=== PATIENT | female | born 1985 | race African-American/Black ===

== ENCOUNTER 2019-10-12 12:21 | Emergency (ER) | payer OTHER, SELFPAY ==
[2019-10-12] MEDS ORDERED: Ketorolac Tromethamine 30 MG/ML VIAL ONE (12:56)
[2019-10-12] MEDS ORDERED: Dexamethasone 10 MG/ML VIAL ONE (12:56)
[2019-10-12] MEDS ORDERED: Metoclopramide HCl 10 MG/2 ML VIAL ONE (12:56)
--- NOTE | 2019-10-12 13:00 | CT ---
Exam: Head CT without contrast HISTORY: Pain. Trauma. COMPARISON: 01/07/2016 FINDINGS: Hemorrhage: No intraparenchymal hemorrhage or extra-axial hematoma. Brain parenchyma: Cortical ansari-white matter differentiation is preserved. No mass effect or midline shift. Basilar cisterns are patent. Ventricular system: Ventricles and sulci are patent and symmetric. Calvarium: Intact. Sinuses and mastoid air cells: Adequate paranasal sinus aeration and the left mastoid air cell aerati on. Minimal opacification of the right mastoid air cells. No evidence of and posterior matter change in the overlying soft tissues. Opacification is presumed to be due to infectious or inflammato ry process. There does appear to be fullness of the nasopharynx. IMPRESSION: 1. No acute intracranial posttraumatic sequelae. 2. Asymmetric partial opacification of the inferior right mastoid air cells. There does appear to be soft tissue fullness of the nasopharynx. Direct visualization to exclude a mucosal-based pathology is recommended. Opacification may be postobstructive versus infectious or inflammatory process
== END 2019-10-12 14:16 | disposition home or self-care (01) ==
LOC: ERS 12:21
DX: J32.9 Chronic sinusitis, unspecified (principal); R51 Headache; F17.290 Nicotine dependence, other tobacco product, uncomplicated
CPT/HCPCS: 70450; 96361; 96374; 96375; J1100; J1885; J2765

== ENCOUNTER 2021-04-21 02:20 | Inpatient (IN) | payer OTHER ==
[2021-04-21 02:49] LABS: #Basophils 0.1 thou/uL (0.0-0.2); #Eosinphils 0.2 thou/uL (0.0-0.7); #Lymphocytes 4.5 thou/uL (1.20-3.40); #Neutrophils 5.8 thou/uL (1.40-6.50); %Basophils 0.8 % (0.0-1.0); %Eosinophils 1.7 % (0.0-10.0); %Monocytes 8.8 % (0.0-10.0); %Neutrophils 49.7 % (42.0-75.0); Hemoglobin 11.2 g/dL (12.0-16.0); Mean Corpuscular HGB CONC 33.5 g/dL (32.0-36.0); Mean Corpuscular Hemoglobin 29.4 pg (27.0-31.0); Mean Corpuscular Volume 87.6 fL (78.0-98.0); Mean Platelet Volume 7.3 fL (7.4-10.4); Platelet Count 382 thou/uL (130-400); Red Blood Cell (RBC) Count 3.81 mill/uL (4.20-5.40); White Blood Cell (WBC) Count 11.6 thou/uL (4.8-10.8)
[2021-04-21] MEDS ORDERED: Fentanyl 100 MCG/2 ML VIAL ONE ×5 (02:55→08:20)
[2021-04-21] MEDS ORDERED: Boostrix 0.5 ML (Tdap) VIAL ONE (02:58)
[2021-04-21] MEDS ORDERED: Ondansetron PF 4 MG/2 ML Vial ONE ×2 (02:58→05:13)
[2021-04-21] MEDS ORDERED: Piperacillin/Tazobactam 3.375 GM VIAL ONE ×3 (02:59→22:51)
[2021-04-21 03:10] LABS: ALT (SGPT) 32 U/L (8-55); AST (SGOT) 24 U/L (5-34); Albumin 3.9 g/dL (3.5-5.0); Alkaline Phosphatase 115 U/L (40-110); Anion Gap 14 mmol/L (10-20); BUN (Urea Nitrogen) 8 mg/dL (7.0-18.7); Bilirubin, Total 0.2 mg/dL (0.2-1.2); Calc. Creatinine Clearance 0 mL/min (70-130); Carbon Dioxide 23 mmol/L (22-29); Chloride 105 mmol/L (98-107); Globulin 3.2 g/dL (2.4-3.5); Glucose 127 mg/dL (70-105); Protein, Total 7.1 g/dL (6.0-8.3); Sodium 139 mmol/L (136-145)
[2021-04-21] MEDS ORDERED: HYDROmorphone 0.5 MG/0.5 ML SYRINGE ONE (03:19)
[2021-04-21] MEDS ORDERED: Dextrose 50% Abboject 50 ML SYRINGE SLOW IVP PRN (03:34)
[2021-04-21] MEDS ORDERED: Piperacillin/Tazobactam 3.375 GM in Sodium Chloride 0.9% 100 ML IVPB SCH (03:34)
[2021-04-21] MEDS ORDERED: Dextrose 5% in Water 1,000 ML IV PRN (03:34)
[2021-04-21] MEDS ORDERED: traMADol HCl 50 MG TAB PO PRN ×2 (03:34)
[2021-04-21] MEDS ORDERED: Ondansetron PF 4 MG/2 ML Vial IVP PRN (03:34)
[2021-04-21] MEDS ORDERED: hydrALAZINE 20 MG/ML VIAL SLOW IVP PRN (03:34)
[2021-04-21] MEDS ORDERED: Promethazine HCl 25 MG/ML VIAL IM PRN ×3 (03:34→06:12)
[2021-04-21] MEDS ORDERED: Ondansetron ODT 4 MG TAB PO PRN (03:34)
[2021-04-21 03:44] LABS: Potassium 2.8 mmol/L (3.5-5.1)
[2021-04-21] MEDS ORDERED: Ibuprofen 800 MG TAB PO SCH (04:00)
[2021-04-21 04:16] LABS: SARS-CoV-2 NAA Rapid Test Not Detected (NotDetected)
[2021-04-21 04:40] LABS: BHCG - Serum Negative (NEGATIVE); Pregs Control Background? CLEAR/WHITE (CLR/WHITE); Pregs Control Bar Appear? YES (CONTROL BAR)
[2021-04-21] MEDS ORDERED: Neomycin-Polymyxin 1 ML AMP ONE (04:42)
[2021-04-21] MEDS ORDERED: Ketorolac Tromethamine 30 MG/ML VIAL ONE (05:13)
[2021-04-21] MEDS ORDERED: PHENYLEPHRINE-NS 100 MCG/ML 10 ML SYRINGE ONE (05:13)
[2021-04-21] MEDS ORDERED: Rocuronium Bromide 10 MG/ML (10ML VIAL) ONE (05:13)
[2021-04-21] MEDS ORDERED: Dexamethasone 20 MG/5 ML VIAL ONE (05:13)
[2021-04-21] MEDS ORDERED: PROPOFOL 200 MG/20 ML VIAL ONE (05:13)
[2021-04-21] MEDS ORDERED: Succinylcholine 200 MG/10 ml SYRINGE FS ONE (05:13)
[2021-04-21] MEDS ORDERED: Lidocaine 1% PF 5 ML VIAL ONE (05:13)
[2021-04-21] MEDS ORDERED: Promethazine HCl 25 MG/ML VIAL IVPB PRN (06:12)
[2021-04-21] MEDS ORDERED: Ondansetron HCl/PF 4 MG/2 ML Vial IVP PRN (06:12)
[2021-04-21] MEDS ORDERED: Sodium Chloride 0.9% 100 ML ONE (07:12)
[2021-04-21] MEDS: Piperacillin/Tazobactam 3.375 GM in Sodium Chloride 0.9% 100 ML IVPB SCH ×3 (07:15→22:52)
[2021-04-21] MEDS ORDERED: Promethazine HCl 25 MG/ML VIAL ONE (07:26)
[2021-04-21 10:04] LABS: Magnesium 1.9 mg/dL (1.6-2.6); Phosphorus 2.7 mg/dL (2.3-4.7)
[2021-04-21] MEDS ORDERED: Acetaminophen 500 MG TAB ONE (11:35)
[2021-04-21] MEDS: Acetaminophen 500 MG TAB PO SCH ×4 (12:13→22:48)
[2021-04-21] MEDS: Potassium Chloride 20 MEQ in Premix Bag 1 BAG IVPB SCH ×3 (12:24→14:20)
[2021-04-21] MEDS ORDERED: Famotidine 20 MG TAB ONE (12:29)
[2021-04-21] MEDS ORDERED: Gabapentin 300 MG CAP ONE (12:29)
[2021-04-21] MEDS: Famotidine 20 MG TAB PO SCH ×2 (12:32→19:50)
[2021-04-21] MEDS: Ibuprofen 200 MG TAB PO SCH ×2 (12:33→19:51)
[2021-04-21] MEDS: CEFAZOLIN 2 GM in Premix Bag 1 BAG IVPB SCH ×2 (12:45→19:49)
[2021-04-21] MEDS: Sodium Chloride 0.9% 1,000 ML IV SCH ×2 (13:10→14:19)
[2021-04-21] MEDS: Gabapentin 300 MG CAP PO SCH ×3 (13:14→19:51)
[2021-04-21 13:49] LABS: Anion Gap 13 mmol/L (10-20); BUN (Urea Nitrogen) 7 mg/dL (7.0-18.7); Calc. Creatinine Clearance 0 mL/min (70-130); Calcium 9.1 mg/dL (7.8-10.44); Carbon Dioxide 26 mmol/L (22-29); Chloride 104 mmol/L (98-107); Glucose 164 mg/dL (70-105); Magnesium 1.9 mg/dL (1.6-2.6); Phosphorus 2.9 mg/dL (2.3-4.7); Potassium 3.5 mmol/L (3.5-5.1); Sodium 139 mmol/L (136-145)
[2021-04-21 15:13] VITALS: BMI 36.3
[2021-04-21] MEDS: Morphine 2 MG/ML VIAL SLOW IVP PRN ×2 (15:33→18:22)
[2021-04-21] MEDS ORDERED: Potassium Chloride 20 MEQ TAB PO SCH (15:45)
[2021-04-21] MEDS ORDERED: PHOS-NAK 1 PKT PACK PO SCH (15:45)
[2021-04-21] MEDS: Cyclobenzaprine 10 MG TAB PO PRN (16:29)
[2021-04-22] MEDS: CEFAZOLIN 2 GM in Premix Bag 1 BAG IVPB SCH ×2 (04:10→11:01)
[2021-04-22] MEDS: Ibuprofen 200 MG TAB PO SCH ×3 (04:11→22:04)
[2021-04-22] MEDS: Morphine 2 MG/ML VIAL SLOW IVP PRN (04:12)
[2021-04-22] MEDS: Acetaminophen 500 MG TAB PO SCH ×4 (05:54→23:34)
[2021-04-22 06:03] LABS: #Monocytes 1.5 thou/uL (0.11-0.59); #Neutrophils 13.1 thou/uL (1.40-6.50); %Basophils 0.2 % (0.0-1.0); %Eosinophils 0.3 % (0.0-10.0); %Lymphocytes 16.8 % (21.0-51.0); %Monocytes 8.4 % (0.0-10.0); %Neutrophils 74.3 % (42.0-75.0); Hemoglobin 10.4 g/dL (12.0-16.0); Mean Corpuscular HGB CONC 33.3 g/dL (32.0-36.0); Mean Corpuscular Hemoglobin 29.7 pg (27.0-31.0); Mean Platelet Volume 7.4 fL (7.4-10.4); Platelet Count 305 thou/uL (130-400); Red Blood Cell (RBC) Count 3.51 mill/uL (4.20-5.40); White Blood Cell (WBC) Count 17.6 thou/uL (4.8-10.8)
[2021-04-22 06:26] LABS: Phosphorus 2.6 mg/dL (2.3-4.7)
[2021-04-22 06:29] LABS: Anion Gap 10 mmol/L (10-20); BUN (Urea Nitrogen) 10 mg/dL (7.0-18.7); Calc. Creatinine Clearance 172 mL/min (70-130); Calcium 8.4 mg/dL (7.8-10.44); Carbon Dioxide 24 mmol/L (22-29); Chloride 107 mmol/L (98-107); Glucose 117 mg/dL (70-105); Magnesium 1.8 mg/dL (1.6-2.6); Potassium 3.4 mmol/L (3.5-5.1); Sodium 138 mmol/L (136-145)
[2021-04-22] MEDS ORDERED: Potassium Chloride 20 MEQ TAB PO SCH (08:00)
[2021-04-22] MEDS ORDERED: PHOS-NAK 1 PKT PACK PO SCH (08:00)
[2021-04-22] MEDS ORDERED: Magnesium 2 GM/50 ML 2 GM in Premix Bag 1 BAG IVPB SCH (08:00)
[2021-04-22] MEDS ORDERED: traMADol HCl 50 MG TAB PO PRN (09:07)
[2021-04-22] MEDS: Piperacillin/Tazobactam 3.375 GM in Sodium Chloride 0.9% 100 ML IVPB SCH ×3 (09:32→23:34)
[2021-04-22] MEDS: Gabapentin 300 MG CAP PO SCH ×3 (09:39→22:04)
[2021-04-22] MEDS: Famotidine 20 MG TAB PO SCH ×2 (09:39→22:04)
[2021-04-22] MEDS: traMADol HCl 50 MG TAB PO SCH ×3 (13:12→23:33)
[2021-04-22] MEDS ORDERED: Neomycin-Polymyxin 1 ML AMP ONE (16:18)
[2021-04-22] MEDS ORDERED: Betamet Acet/Betamet Na Ph 30 MG/5 ML VIAL ONE (16:18)
[2021-04-22] MEDS ORDERED: Bacitracin Zinc Ointment 30 gm TUBE ONE (16:18)
[2021-04-22] MEDS ORDERED: Thrombin 5000 UNITS/5 ML VIAL ONE (16:18)
[2021-04-22] MEDS ORDERED: Bupivacaine PF 0.5% 30 ML VIAL ONE ×2 (16:19→19:54)
[2021-04-22] MEDS ORDERED: Ropivacaine 0.2% HCl/PF 20 ML ONE (16:20)
[2021-04-22] MEDS ORDERED: Midazolam HCl 2 mg/2 ml Vial ONE (16:32)
[2021-04-22] MEDS ORDERED: Fentanyl 100 MCG/2 ML VIAL ONE (16:32)
[2021-04-22] MEDS ORDERED: PROPOFOL 200 MG/20 ML VIAL ONE (17:17)
[2021-04-22] MEDS ORDERED: Dexamethasone 20 MG/5 ML VIAL ONE (17:17)
[2021-04-22] MEDS ORDERED: Succinylcholine 200 MG/10 ml SYRINGE FS ONE (17:17)
[2021-04-22] MEDS ORDERED: Ondansetron PF 4 MG/2 ML Vial ONE (17:17)
[2021-04-22] MEDS ORDERED: Lidocaine 1% PF 5 ML VIAL ONE (17:17)
[2021-04-22] MEDS ORDERED: Mineral Oil Sterile 10 ML VIAL ONE (19:37)
[2021-04-22] MEDS ORDERED: Bupivacaine 0.25% HCL 30 ML VIAL ONE (19:54)
[2021-04-22] MEDS ORDERED: PACU-Morphine 4MG/ML VIAL SLOW IVP PRN (20:48)
[2021-04-22] MEDS ORDERED: Promethazine HCl 25 MG/ML VIAL IM PRN (20:48)
[2021-04-22] MEDS ORDERED: Promethazine HCl 25 MG/ML VIAL IVPB PRN (20:48)
[2021-04-22] MEDS ORDERED: Ondansetron HCl/PF 4 MG/2 ML Vial IVP PRN (20:48)
[2021-04-22] MEDS ORDERED: Meperidine HCl/PF 25 MG/ML VIAL SLOW IVP PRN ×2 (20:48)
[2021-04-22] MEDS ORDERED: Ketorolac Tromethamine 30 MG/ML VIAL IVP PRN (20:48)
[2021-04-22] MEDS ORDERED: Morphine Sulfate 2 MG/ML SYRINGE SLOW IVP PRN (20:48)
[2021-04-22] MEDS ORDERED: Ketorolac Tromethamine 30 MG/ML VIAL ONE (20:49)
[2021-04-23] MEDS: Ibuprofen 200 MG TAB PO SCH ×2 (03:30→11:49)
[2021-04-23] MEDS: traMADol HCl 50 MG TAB PO SCH ×2 (05:00→11:49)
[2021-04-23] MEDS: Acetaminophen 500 MG TAB PO SCH ×2 (05:00→11:50)
[2021-04-23 07:42] LABS: #Monocytes 0.8 thou/uL (0.11-0.59); #Neutrophils 9.9 thou/uL (1.40-6.50); %Basophils 0.1 % (0.0-1.0); %Eosinophils 0.1 % (0.0-10.0); %Lymphocytes 15.6 % (21.0-51.0); %Monocytes 6.3 % (0.0-10.0); Mean Corpuscular HGB CONC 33.6 g/dL (32.0-36.0); Mean Corpuscular Hemoglobin 30.2 pg (27.0-31.0); Mean Corpuscular Volume 90.1 fL (78.0-98.0); Mean Platelet Volume 8.8 fL (7.4-10.4); Platelet Count 280 thou/uL (130-400); RBC Distribution Width 13.2 % (11.5-14.5); White Blood Cell (WBC) Count 12.7 thou/uL (4.8-10.8)
[2021-04-23 08:03] LABS: Anion Gap 10 mmol/L (10-20); BUN (Urea Nitrogen) 7 mg/dL (7.0-18.7); Calc. Creatinine Clearance 182 mL/min (70-130); Calcium 8.6 mg/dL (7.8-10.44); Carbon Dioxide 24 mmol/L (22-29); Chloride 108 mmol/L (98-107); Glucose 118 mg/dL (70-105); Magnesium 1.9 mg/dL (1.6-2.6); Phosphorus 3.4 mg/dL (2.3-4.7); Potassium 3.8 mmol/L (3.5-5.1); Sodium 138 mmol/L (136-145)
[2021-04-23] MEDS: Piperacillin/Tazobactam 3.375 GM in Sodium Chloride 0.9% 100 ML IVPB SCH (08:44)
[2021-04-23] MEDS: Cyclobenzaprine 10 MG TAB PO PRN (08:44)
[2021-04-23] MEDS: Famotidine 20 MG TAB PO SCH (08:45)
[2021-04-23] MEDS: Gabapentin 300 MG CAP PO SCH (08:45)
[2021-04-23 12:32] VITALS: BP 127/74; TEMP 98.4
== END 2021-04-23 16:38 | disposition home or self-care (01) | DRG 264 ==
LOC: ERS 02:20 → SDC 05:15 → SURG A 05:16
PROVIDERS: ADMIT Specialist; ATTEND Specialist
PROC: 0LB50ZZ Excision of Right Lower Arm and Wrist Tendon, Open Approach (ICD-10-PCS; principal; 2021-04-21)
PROC: 0HRDX74 Replacement of Right Lower Arm Skin with Autologous Tissue Substitute, Partial Thickness, External Approach (ICD-10-PCS; 2021-04-21)
PROC: 0LB50ZZ Excision of Right Lower Arm and Wrist Tendon, Open Approach (ICD-10-PCS; 2021-04-21)
PROC: 0LQ50ZZ Repair Right Lower Arm and Wrist Tendon, Open Approach (ICD-10-PCS; 2021-04-21)
PROC: 0KQC0ZZ Repair Right Hand Muscle, Open Approach (ICD-10-PCS; 2021-04-21)
PROC: 0HBHXZZ Excision of Right Upper Leg Skin, External Approach (ICD-10-PCS; 2021-04-21)
DX: I96 Gangrene, not elsewhere classified (principal); S56.521A Laceration of other extensor muscle, fascia and tendon at forearm level, right arm, initial encounter; Z20.822 Contact with and (suspected) exposure to COVID-19; E66.01 Morbid (severe) obesity due to excess calories; F17.210 Nicotine dependence, cigarettes, uncomplicated; Z90.49 Acquired absence of other specified parts of digestive tract; W31.9XXA Contact with unspecified machinery, initial encounter; Z68.36 Body mass index [BMI] 36.0-36.9, adult
CPT/HCPCS: 36415; 80048; 80053; 83735; 84100; 84703; 85025; 90471; 90715; 96374; 96375; 96376; G0390; J0690; J0702; J1100; J1170; J1885; J2250; J2270; J2405; J2543; J2550; J2704; J2795; J3010; J3475; J3480; J3490; J7050; S0020; U0002